=== PATIENT | female | born 1985 | race Caucasian/White ===

== ENCOUNTER 2022-11-15 10:49 | Outpatient (CLI) | payer BC, SELFPAY ==
--- NOTE | 2022-11-15 11:03 | MM_ITS ---
WS: [id number] DIAGNOSTIC BILATERAL DIGITAL BREAST TOMOSYNTHESIS MAMMOGRAPHY WITH CAD Bilateral breast ultrasound, limited HISTORY: RT BREAST LUMP 11 OCLOCK COMPARISON: None available. TECHNIQUE: Bilateral craniocaudad, mediolateral oblique, and mediolateral views are submitted with to mosynthesis and SM. Compression views RIGHT CC and MLO. Computer aided detection utilized. Breast composition: The breasts are heterogeneously dense, which may obscure small masses. Well-circu mscribed mass at 12:00 middle depth measures 18 x 16 mm. Additional area of dense fibroglandular tiss ue in the upper outer quadrant of the RIGHT breast near 10:00. There is additional patchy dense tissu e in the LEFT breast at 12-2 o'clock. This will be further evaluated by ultrasound also. No mass iden tified by mammography. Bilateral breast ultrasound, limited. RIGHT breast: Well-circumscribed solid mass with cystic component at 12:00, 3 cm the nipple measures 2.0 x 1.9 x 1.7 cm. There is increased vascularity within the solid component. No additional suspicio us masses in the RIGHT upper outer quadrant. There are a few mildly prominent ducts in a small lobula francheska cyst measuring 1.1 x 0.9 x 0.9 cm. LEFT breast: Dense fibroglandular tissue upper outer quadrant of the LEFT breast with a few small cys ts and ducts. No solid mass. MM/[id number] IMPRESSION: BI-RADS: 4-Suspicious Finding-Biopsy Should Be Considered FOLLOW UP: Biopsy Recommended Ultrasound-guided biopsy recommended solid mass with increased vascularity RIGH T breast at 12:00. Differential includes benign degenerating fibroadenoma and w ell circumscribed breast cancers such as mucinous, papillary or medullary carci nomas. Notified LORRAINE Graves at 11/15/2022 12:41 PM.
== END 2022-11-15 10:50 | disposition home or self-care (01) ==
LOC: RAD 10:57
PROVIDERS: Visit Provider Nurse Practitioner Family
DX: N63.11 Unspecified lump in the right breast, upper outer quadrant (principal)
CPT/HCPCS: 76642; 77062; G0279

== ENCOUNTER 2022-12-12 11:32 | Outpatient (CLI) | payer BC, SELFPAY ==
--- NOTE | 2022-12-12 12:05 | US_ITS ---
WS: [id number] ULTRASOUND-GUIDED RIGHT BREAST BIOPSY HISTORY: ABNORMAL MAMMOGRAM OF RT BREAST COMPARISON: 11/15/2022 Procedure, risks and complications are explained to the patient. Medications are reviewed. Consent is obtained. The mass in the RIGHT breast is localized with ultrasound. Mass localizes 12:00, 3 cm from the nipple . Solid and cystic components. Skin is cleansed with ChloraPrep and anesthetized with 1% buffered lid ocaine. Small dermatome is made. Under sterile conditions mass is biopsied with a 14-gauge Achieve ne edle. Multiple core biopsies are performed. Material placed in formalin and sent to pathology for rev iew. No complications encountered. Breast tissue marker (Bard ultrasound enhanced ribbon): Single. Patient left the radiology suite with no complications. Patient is instructed to return to [facility] or [facility] with any concerns. US/[id number] IMPRESSION: 1. Uncomplicated core needle biopsy RIGHT breast mass at 12:00. 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 RECOMMENDATION: Return to annual screening mammography.
== END 2022-12-12 11:33 | disposition home or self-care (01) ==
PROVIDERS: PCP Family Medicine; Visit Provider Nurse Practitioner Family
DX: D24.1 Benign neoplasm of right breast (principal); N63.15 Unspecified lump in the right breast, overlapping quadrants; R92.8 Other abnormal and inconclusive findings on diagnostic imaging of breast
CPT/HCPCS: 19083; 88305